=== PATIENT | female | born 2000 | race Caucasian/White ===

== ENCOUNTER 2019-12-03 10:10 | Outpatient (CLI) | payer OTHER | END 2019-12-03 23:59 | disposition home or self-care (01) | LOC: RAD 10:10 → MERGE 10:30 → RAD 23:59 | PROVIDERS: ATTEND Internal Medicine Gastroenterology | DX: K30 Functional dyspepsia (principal); K31.89 Other diseases of stomach and duodenum; E66.9 Obesity, unspecified | CPT/HCPCS: 78264; A9541 ==